=== PATIENT | female | born 1940 | race Asian ===

== ENCOUNTER → 2019-11-11 | Outpatient (CLI) | payer BC ==
[~2019-11-11] MED LIST: CALC600T4 PO; CHOL10003 PO; TERI2.4P INJ
[2019-11-11 12:19] LABS: BASOPHILS # (AUTO) 0.04 x10^3/uL (0-0.1); BASOPHILS % (AUTO) 1 % (0-1); EOSINOPHILS # (AUTO) 0.06 x10^3/uL (0-0.4); EOSINOPHILS % (AUTO) 1 % (1-7); LYMPHOCYTES % (AUTO) 15 % (22-44); MD NO; MEAN CORPUSCULAR HEMOGLOBIN 33.7 pg (27.0-34.8); MEAN CORPUSCULAR HGB CONC 33.9 g/dL (32.4-35.8); MEAN CORPUSCULAR VOLUME 99.1 fL (80-100); MEAN PLATELET VOLUME 7.9 fL (7.4-10.4); MICROSCOPIC NOT IND; MONOCYTES % (AUTO) 7 % (2-9); NEUTROPHILS # (AUTO) 5.46 x10^3/uL (1.8-6.8); NEUTROPHILS % (AUTO) 76 % (42-75); PLATELET COUNT 302 x10^3/uL (130-400); RED BLOOD COUNT 4.79 x10^6/uL (3.82-5.3); RED CELL DISTRIBUTION WIDTH 12.5 % (9.6-15.2)
[2019-11-11 12:27] LABS: ANION GAP 6 mmol/L (5-15); CALCIUM 11.4 mg/dL (8.5-10.1); CHLORIDE 104 mmol/L (98-107); CREATININE 0.77 mg/dL (0.55-1.02); INTERNATIONAL NORMALIZED RATIO 0.93 (0.93-1.1); PROTHROMBIN TIME 9.8 Seconds (9.6-11.5)
== END | disposition home or self-care (01) ==
LOC: STAR 10:43
PROVIDERS: ATTEND Neurological Surgery
DX: Z01.818 Encounter for other preprocedural examination (principal); S32.020A Wedge compression fracture of second lumbar vertebra, initial encounter for closed fracture; M48.061 Spinal stenosis, lumbar region without neurogenic claudication; M51.36 Other intervertebral disc degeneration, lumbar region; M41.86 Other forms of scoliosis, lumbar region; I44.0 Atrioventricular block, first degree; X58.XXXA Exposure to other specified factors, initial encounter; Y93.89 Activity, other specified; Y92.89 Other specified places as the place of occurrence of the external cause; Y99.8 Other external cause status
CPT/HCPCS: 36415; 71046; 72110; 80048; 81003; 85025; 85610; 85730; 93005

== ENCOUNTER 2019-11-20 08:42 | Observation (INO) | payer BC ==
[~2019-11-20] VITALS: Ht 160 cm; Wt 63.0 kg
[~2019-11-20 08:42] MED LIST changes: +BACITRACIN 50,000 UNIT ONE; +BUPIVACAINE/PF-EPI 0.25% 1:200K ONE; +BUPIVACAINE/PF-EPI 0.5% 1:200K ONE; +methylPREDNISolone SOD SUCC 125 MG/2 ML ONE; +methylPREDNISolone SOD SUCC 40 MG/ML ONE
[2019-11-20] MEDS ORDERED: LACTATED RINGERS 1,000 ML IV ONE (09:17)
[2019-11-20] MEDS ORDERED: LIDOCAINE-MPF 1%, 2ML INFIL STA (09:17)
[2019-11-20] MEDS ORDERED: CHLORHEXIDINE 15 ML UDC MM STA (09:17)
[2019-11-20 09:18] VITALS: BP 179/88
[2019-11-20] MEDS ORDERED: CHLORHEXIDINE 15 ML UDC ONE (09:24)
[2019-11-20] MEDS ORDERED: BUPIVACAINE/PF-EPI 0.25% 1:200K ONE (10:08)
[2019-11-20] MEDS ORDERED: FENTANYL PF 250 MCG/5ML ONE (11:44)
[2019-11-20] MEDS ORDERED: MIDAZOLAM 1 MG/ML, 2ML ONE (11:44)
[2019-11-20] MEDS ORDERED: ONDANSETRON 2MG/ML, 2ML ONE (12:18)
[2019-11-20] MEDS ORDERED: ROCURONIUM 10MG/ML,5ML ONE (12:18)
[2019-11-20] MEDS ORDERED: DEXAMETHASONE 4 MG/ML, 1ML ONE (12:18)
[2019-11-20] MEDS ORDERED: CEFAZOLIN 1,000 MG ONE (12:18)
[2019-11-20] MEDS ORDERED: SUCCINYLCHOLINE 20 MG/ML, 10ML ONE (12:18)
[2019-11-20] MEDS ORDERED: PROPOFOL 10 MG/ML, 20ML ONE (12:18)
[2019-11-20] MEDS ORDERED: DIPHENHYDRAMINE 50 MG/ML, 1ML ONE (12:18)
[2019-11-20] MEDS ORDERED: MEPERIDINE/PF 25MG/0.5ML IVPush PRN (13:00)
[2019-11-20] MEDS ORDERED: ALBUTEROL SULFATE 2.5 MG/3 ML NPPB PRN (13:00)
[2019-11-20] MEDS ORDERED: METOCLOPRAMIDE 5 MG/ML, 2ML IV PRN (13:00)
[2019-11-20] MEDS ORDERED: OXYcodone 5 MG/5 ML ORAL.SOL UDC PO PRN (13:00)
[2019-11-20] MEDS ORDERED: KETOROLAC 30 MG/1 ML IV PRN (13:00)
[2019-11-20] MEDS ORDERED: HYDROmorphone 1 MG/ML, 1ML INJ IV PRN (13:00)
[2019-11-20] MEDS ORDERED: LABETALOL 5MG/ML, 20ML IV PRN (13:00)
[2019-11-20] MEDS ORDERED: ONDANSETRON 2MG/ML, 2ML IVPush PRN (13:00)
[2019-11-20] MEDS ORDERED: PROMETHAZINE 25 MG/ML, 1ML IV PRN (13:00)
[2019-11-20] MEDS ORDERED: DIAZEPAM 5 MG/ML, 2ML IV PRN ×2 (13:00)
[2019-11-20] MEDS ORDERED: hydrALAzine 20 MG/ML, 1ML IV PRN (13:00)
[2019-11-20] MEDS ORDERED: OXYcodone 5 MG/5 ML ORAL.SOL UDC ONE (14:06)
[2019-11-20] MEDS ORDERED: FENTANYL PF 100 MCG/2ML ONE (14:06)
[2019-11-20] MEDS: FENTANYL PF 100 MCG/2ML IV PRN ×3 (14:09→14:30)
[2019-11-20] MEDS ORDERED: TIZANIDINE 4MG TABLET PO ONE ×2 (14:30)
[2019-11-20] MEDS ORDERED: TIZANIDINE 2MG TABLET PO PRN (18:30)
[2019-11-20] MEDS ORDERED: OXYcodone IR 5MG TABLET PO PRN ×2 (18:30)
[2019-11-20] MEDS ORDERED: SODIUM CHLORIDE 0.9% 1,000ML IV PRN (18:30)
[2019-11-20] MEDS ORDERED: BISACODYL 10 MG SUPP PR PRN (18:30)
[2019-11-20] MEDS ORDERED: HYDROcodone/APAP 5/325 TABLET PO PRN (18:30)
[2019-11-20] MEDS ORDERED: MAGNESIUM HYDROXIDE 8%, 30ML UDC PO PRN (18:30)
[2019-11-20] MEDS ORDERED: DIPHENHYDRAMINE 50 MG/ML, 1ML IVPush PRN ×2 (18:30)
[2019-11-20] MEDS ORDERED: DIPHENHYDRAMINE 25 MG CAPSULE PO PRN (18:30)
[2019-11-20] MEDS ORDERED: PROMETHAZINE 25 MG/ML, 1ML IM PRN (18:30)
[2019-11-20 18:37] VITALS: BP 125/65
[2019-11-20] MEDS: CEFAZOLIN PMX 1GM/50ML 50 ML IVPB SCH (20:13)
[2019-11-20] MEDS: HYDROcodone/APAP 10/325 MG TABLET PO PRN (20:13)
[2019-11-20] MEDS: NS + 20MEQ KCL 1,000 ML IV SCH (20:13)
[2019-11-21 00:51] VITALS: BP 120/68
[2019-11-21] MEDS: HYDROcodone/APAP 10/325 MG TABLET PO PRN (03:12)
[2019-11-21 03:34] VITALS: BP 131/63
[2019-11-21] MEDS: CEFAZOLIN PMX 1GM/50ML 50 ML IVPB SCH (04:16)
[2019-11-21] MEDS: NS + 20MEQ KCL 1,000 ML IV SCH ×2 (05:55→16:00)
[2019-11-21 07:30] VITALS: BP 135/71
[2019-11-21] MEDS: ONDANSETRON 2MG/ML, 2ML IV PRN ×2 (08:11→15:11)
[2019-11-21] MEDS: TERIPARATIDE 20 MCG SQ SCH (09:00)
[2019-11-21] MEDS ORDERED: METHOCARBAMOL 750 MG TABLET PO PRN (09:30)
[2019-11-21] MEDS: SENNA/DOCUSATE TABLET PO SCH (10:47)
[2019-11-21 12:25] VITALS: BP 138/67
[2019-11-21] MEDS: ACETAMINOPHEN 325 MG TABLET PO SCH ×2 (12:30→18:08)
[2019-11-21] MEDS: CALCIUM CARBONATE 500 MG TABLET PO SCH (12:30)
[2019-11-21] MEDS ORDERED: ACETAMINOPHEN 325 MG TABLET PO SCH (15:00)
[2019-11-21 20:29] VITALS: BP_SYST 107; BP_SYST 94; BP_DIAS 48; BP_DIAS 59
[2019-11-22] MEDS: ACETAMINOPHEN 325 MG TABLET PO SCH ×2 (00:32→06:18)
[2019-11-22] MEDS: NS + 20MEQ KCL 1,000 ML IV SCH (01:40)
[2019-11-22 02:15] VITALS: BP 106/60
[2019-11-22] MEDS: CALCIUM CARBONATE 500 MG TABLET PO SCH (08:03)
[2019-11-22] MEDS: SENNA/DOCUSATE TABLET PO SCH (08:03)
[2019-11-22] MEDS: TERIPARATIDE 20 MCG SQ SCH (08:04)
[2019-11-22 08:25] VITALS: BP 105/64
[2019-11-22] MEDS ORDERED: TIZA2TAB4 PO (09:02)
[2019-11-22 10:48] VITALS: BP 154/74
== END 2019-11-22 11:11 | disposition home or self-care (01) ==
LOC: OUT 08:42 → 4NE 17:47 → OUT 23:17 → DCLOUNGE 11-22 11:05
PROVIDERS: ADMIT Neurological Surgery; ATTEND Neurological Surgery
DX: Z03.818 Encounter for observation for suspected exposure to other biological agents ruled out (principal); M48.062 Spinal stenosis, lumbar region with neurogenic claudication; E78.00 Pure hypercholesterolemia, unspecified; M47.26 Other spondylosis with radiculopathy, lumbar region; M81.0 Age-related osteoporosis without current pathological fracture; Z88.5 Allergy status to narcotic agent; Z79.899 Other long term (current) drug therapy
CPT/HCPCS: 63047; 63048; 72100; 96365; 96366; 96375; 96376; 97161; 97165; G0378; J0330; J0690; J1100; J1200; J2250; J2405; J2704; J3010; J3480; J3490; J7120; U0001; J2920; J2930